=== PATIENT | male | born 1970 | race Caucasian/White ===

== ENCOUNTER 2023-07-14 23:22 | Inpatient (IN) | payer BC ==
[~2023-07-14] VITALS: Ht 182.9 cm; Wt 110.5 kg
[2023-07-15] VITALS (11 sets, daily range): BP systolic 103–126; BP diastolic 63–75; PULSE 85–109; RESP 12–17; TEMP 97.7; O2SAT 95–97
[2023-07-15 00:15] LABS: HEMOGLOBIN 14.7 g/dl (14.0-17.9); MEAN PLATELET VOLUME 7.4 FL (7.4-10.4)
[2023-07-15 00:17] LABS: BASOPHILS # (AUTO) 0.1 X10'3 (0-0.2); BASOPHILS % (AUTO) 0.8 % (0-1); EOSINOPHILS # (AUTO) 0.4 X10'3 (0-0.9); HEMATOCRIT 43.3 % (42.0-52.0); LYMPHOCYTES # (AUTO) 3.4 X10'3 (1.1-4.8); LYMPHOCYTES % (AUTO) 27.7 % (21-51); MEAN CORPUSCULAR HEMOGLOBIN 29.9 PG (27.0-31.0); MEAN CORPUSCULAR VOLUME 87.9 FL (78-98); MONOCYTES # (AUTO) 1.1 X10'3 (0-0.9); MONOCYTES % (AUTO) 8.9 % (2-12); NEUTROPHILS # (AUTO) 7.4 X10'3 (1.8-7.7); NEUTROPHILS % (AUTO) 59.6 % (42-75); PLATELET COUNT 348 X10'3 (140-440); RED BLOOD COUNT 4.92 X10'6 (4.70-6.10); RED CELL DISTRIBUTION WIDTH 13.1 % (11.5-14.5); WHITE BLOOD COUNT 12.4 X10'3 (4.5-11.0)
[2023-07-15 00:35] LABS: D-DIMER 0.42 MG/L FEU (0-0.50)
[2023-07-15 00:38] LABS: ALANINE AMINOTRANSFERASE 35 U/L (12-78); ALBUMIN 3.2 G/DL (3.4-5.0); ALKALINE PHOSPHATASE 84 IU/L (46-116); ANION GAP 11 (8-16); ASPARTATE AMINO TRANSFERASE 18 U/L (10-37); BILIRUBIN,TOTAL 0.2 MG/DL (0.1-1.0); BLOOD UREA NITROGEN 12 MG/DL (7-18); CALCIUM 9.2 MG/DL (8.5-10.1); CHLORIDE 102 MMOL/L (99-107); GLUCOSE 124 MG/DL (70-104); POTASSIUM 3.6 MMOL/L (3.5-5.1); SODIUM 135 MMOL/L (135-145); TOTAL CARBON DIOXIDE 22.4 MMOL/L (24-32); TOTAL PROTEIN 6.4 G/DL (6.4-8.2); eCRCL 120 ML/MIN; eGFR > 90 ML/MIN
[2023-07-15 00:46] LABS: PRO BRAIN NATRIURETIC PEPTIDE 37 PG/ML (0-125)
[2023-07-15] MEDS ORDERED: morphine 4 MG/ML inj SYRINge IV ONE (01:00)
[2023-07-15] MEDS ORDERED: ondansetron/PF 4mg/2ml inj IV ONE (01:25)
[2023-07-15] MEDS ORDERED: diphenhydrAMINE 25mg capsule PO PRN (01:30)
[2023-07-15] MEDS ORDERED: bisacodyl 10mg suppository rectal RC PRN (01:30)
[2023-07-15] MEDS ORDERED: morphine 2 MG/ML inj. syringe IV PRN (01:30)
[2023-07-15] MEDS ORDERED: HYDROcodone/acetaminophen 10/325mg tab PO PRN (01:30)
[2023-07-15] MEDS ORDERED: ondansetron/PF 4mg/2ml inj IV PRN (01:30)
[2023-07-15] MEDS ORDERED: acetaminophen 650mg rectal suppository RC PRN (01:30)
[2023-07-15] MEDS ORDERED: ondansetron 4mg rapidly disintigrating tab PO PRN (01:30)
[2023-07-15] MEDS ORDERED: acetaminophen 325mg tablet PO PRN ×2 (01:30)
[2023-07-15] MEDS ORDERED: dextrose 5%-1/2 normal saline 1,000 ML IV SCH (01:30)
[2023-07-15] MEDS ORDERED: metoclopramide 5 mg/ml inj IV PRN (01:30)
[2023-07-15] MEDS ORDERED: magnesium hydroxide 30ml (MOM) UD suspension PO PRN (01:30)
[2023-07-15] MEDS ORDERED: mag hydrox/Alum hydrox/simeth 30ml oral suspension PO PRN (01:30)
[2023-07-15] MEDS ORDERED: diphenhydrAMINE 50 mg/ml inj IV PRN (01:30)
[2023-07-15] MEDS ORDERED: nitroGLYCERIN 0.4mg SUBLingual tab SL PRN (01:35)
[2023-07-15] MEDS ORDERED: metoprolol tartrate 1mg/ml inj IV PRN (01:35)
[2023-07-15] MEDS ORDERED: aminophylline 250mg/10ml inj. IV PRN (01:35)
[2023-07-15] MEDS ORDERED: regadenoson 0.4mg/5ml syringe IV PRN (01:35)
[2023-07-15 02:02] LABS: HEMOGLOBIN A1C 5.8 % (4.5-6.2)
[2023-07-15 02:05] LABS: APTT 30 SECONDS (22-32); PROTHROMBIN TIME 10.4 SECONDS (9.0-12.0)
[2023-07-15 02:17] LABS: LIPASE 44 U/L (16-77); PHOSPHORUS 4.1 MG/DL (2.3-4.5); THYROID STIMULATING HORMONE 4.23 ulU/ml (0.34-4.50)
[2023-07-15 02:32] LABS: URINE AMPHETAMINE SCREEN NEGATIVE (Neg); URINE BARBITUATE SCREEN NEGATIVE (Neg); URINE BENZODIAZEPINES SCREEN NEGATIVE (Neg); URINE CANNABINOID SCREEN NEGATIVE (Neg); URINE COCAINE SCREEN NEGATIVE (Neg); URINE METHADONE SCREEN NEGATIVE (Neg); URINE OPIATE SCREEN POSITIVE (Neg); URINE PHENCYCLIDINE SCREEN NEGATIVE (Neg)
[2023-07-15] MEDS ORDERED: HYDROmorphone inj. 0.5 MG/0.5 ML DISP.SYRIN IV ONE (03:30)
[2023-07-15] MEDS ORDERED: nitroGLYCERIN-Tridil 50MG/D5W 250 ML IV SCH (03:35)
[2023-07-15] MEDS ORDERED: ringers solution, lacted 1,000 ML IV ONE (03:35)
[2023-07-15] MEDS: morphine 2 MG/ML inj. syringe IV PRN ×2 (06:03→10:18)
[2023-07-15] MEDS ORDERED: methylPREDNISolone sod succ 125mg/2ml vial IV STA (06:19)
[2023-07-15] MEDS ORDERED: famotidine/PF 10 mg/ml inj IV STA (06:19)
[2023-07-15] MEDS ORDERED: diphenhydrAMINE 50 mg/ml inj IV STA (06:19)
[2023-07-15] MEDS ORDERED: pantoprazole 40mg Tablet.DR PO SCH (07:30)
[2023-07-15] MEDS ORDERED: nitroGLYCERIN 0.2mg/hour patch TD SCH (08:00)
[2023-07-15] MEDS ORDERED: docusate sod 100mg capsule PO SCH (08:00)
[2023-07-15] MEDS ORDERED: heparin, porcine 5000 units/ml vial SQ SCH (08:00)
[2023-07-15] MEDS: nicotine 21mg patch - 24 hr TD SCH ×2 (08:00→09:21)
[2023-07-15] MEDS ORDERED: atorvastatin 20mg tablet PO SCH (08:00)
[2023-07-15] MEDS ORDERED: aspirin 81mg, enteric-coated 1 TAB TABLET.DR PO SCH (08:00)
[2023-07-15 08:32] LABS: BASOPHILS % (AUTO) 0.3 % (0-1); EOSINOPHILS # (AUTO) 0.1 X10'3 (0-0.9); HEMATOCRIT 45.1 % (42.0-52.0); HEMOGLOBIN 15.1 g/dl (14.0-17.9); LYMPHOCYTES # (AUTO) 1.7 X10'3 (1.1-4.8); LYMPHOCYTES % (AUTO) 13.2 % (21-51); MEAN CORPUSCULAR HEMOGLOBIN 29.5 PG (27.0-31.0); MEAN CORPUSCULAR HGB CONC 33.4 g/dL (33.0-36.5); MEAN CORPUSCULAR VOLUME 88.3 FL (78-98); MEAN PLATELET VOLUME 7.5 FL (7.4-10.4); MONOCYTES # (AUTO) 0.6 X10'3 (0-0.9); MONOCYTES % (AUTO) 4.9 % (2-12); NEUTROPHILS # (AUTO) 10.1 X10'3 (1.8-7.7); NEUTROPHILS % (AUTO) 80.6 % (42-75); PLATELET COUNT 376 X10'3 (140-440); RED BLOOD COUNT 5.11 X10'6 (4.70-6.10); WHITE BLOOD COUNT 12.5 X10'3 (4.5-11.0)
[2023-07-15] MEDS: HYDROcodone/acetaminophen 5mg/325mg tablet PO PRN ×2 (10:18→14:17)
[2023-07-15] MEDS ORDERED: hydrOXYzine 25 MG tablet PO ONE (14:10)
[2023-07-15] MEDS ORDERED: HYDR-3686 PO (15:19)
[2023-07-15] MEDS ORDERED: METO-395 PO (15:19)
[2023-07-15] MEDS ORDERED: temazepam 15mg capsule PO PRN (21:00)
== END 2023-07-15 16:01 | disposition home or self-care (01) | DRG 305 ==
LOC: ER 23:22 → ED HOLD 07-15 01:33
PROVIDERS: ADMIT Family Medicine; ATTEND Internal Medicine
PROC: 4A02XM4 Measurement of Cardiac Total Activity, External Approach (ICD-10-PCS; principal; 2023-07-15)
PROC: 3E033HZ Introduction of Radioactive Substance into Peripheral Vein, Percutaneous Approach (ICD-10-PCS; 2023-07-15)
DX: I16.1 Hypertensive emergency (principal); E66.9 Obesity, unspecified; E88.09 Other disorders of plasma-protein metabolism, not elsewhere classified; I25.9 Chronic ischemic heart disease, unspecified; I20.9 Angina pectoris, unspecified; I10 Essential (primary) hypertension; Z72.0 Tobacco use; Z68.33 Body mass index [BMI] 33.0-33.9, adult; Z71.6 Tobacco abuse counseling
CPT/HCPCS: 36415; 71045; 78452; 80053; 80305; 83036; 83690; 83735; 83880; 84100; 84443; 84484; 85025; 85379; 85610; 85730; 93005; 93017; 96374; 96375; 96376; 99285; A9500; G0378; J1170; J1200; J1644; J2270; J2405; J2785; J2930; J3490; J7120; Q0177